=== PATIENT | female | born 1995 | race Caucasian/White ===

== ENCOUNTER 2019-10-24 21:20 | Outpatient (CLI) | payer MEDICAID ==
[2011-12-10 08:10] VITALS: BMI 21.8
[2019-10-24 22:31] LABS: BILIRUBIN NEGATIVE (NEGATIVE); GLUCOSE NEGATIVE (NEGATIVE); KETONE NEGATIVE (NEGATIVE); NITRITE NEGATIVE (NEGATIVE); UROBILINOGEN NORMAL (NORMAL)
[2019-10-24 22:32] LABS: BACTERIA MANY /hpf (NEGATIVE); EPITHELIAL CELLS 0-5 /hpf (0-5); RED CELLS - URINE 0-5 /hpf (0-5)
[2019-10-25 09:04] LABS: BASOPHILS 0.1 % (0-2); EOSINOPHILS 0.3 % (0-7); HEMATOCRIT 29.7 % (36.0-48.0); IMMATURE GRANULOCYTES 0.2 % (0-5); LYMPHOCYTES 20.7 % (15-50); MCH 29.5 pg (26.0-34.0); MCHC 33.7 g/dL (31.0-37.0); MCV 87.6 fL (80.0-100.0); MEAN PLATELET VOLUME 9.2 fL (7.4-10.4); MONOCYTES 4.7 % (2-11); PLATELET COUNT 337 10x3/uL (130-400); RBC 3.39 10x6/uL (4.00-5.40); RDW 13.8 % (11.5-14.5); WBC 8.9 10x3/uL (4.8-10.8)
[2019-10-25 09:14] LABS: CALC OSMOLALITY 268 mosm/kg (275-300); CALCIUM 8.3 mg/dL (8.5-10.1); CARBON DIOXIDE 27.3 mmol/L (21.0-32.0); CHLORIDE - SERUM 104 mmol/L (98-107); CREATININE - SERUM 0.5 mg/dL (0.6-1.3); GLUCOSE 80 mg/dL (74-106); POTASSIUM - SERUM 3.3 mmol/L (3.5-5.1); SODIUM 136 mmol/L (136-145); UREA NITROGEN 6 mg/dL (7-18); eGFR NON AFRICAN AMERICAN > 90 mL/min (90-120)
[2019-10-25 09:20] LABS: ALBUMIN 2.5 g/dL (3.4-5.0); ALKALINE PHOSPHATASE 57 U/L (30-120); ALT (SGPT) 13 U/L (10-68); BILIRUBIN - TOTAL 0.46 mg/dL (0.2-1.3); PROTEIN - SERUM 5.9 g/dL (6.4-8.2)
== END 2019-10-25 14:00 | disposition home or self-care (01) ==
LOC: D.LDO 21:20 → D.LD 21:20 → D.LDO 10-25 14:00
PROVIDERS: ATTEND Student in an Organized Health Care Education/Training Program
DX: O26.899 Other specified pregnancy related conditions, unspecified trimester (principal); Z3A.00 Weeks of gestation of pregnancy not specified; R10.9 Unspecified abdominal pain

== ENCOUNTER 2019-11-18 06:33 | Inpatient (IN) | payer OTHER ==
[~2019-11-18] VITALS: Ht 162.6 cm; Wt 63.5 kg
[2019-11-18] MEDS ORDERED: MIGRAINE MEDS (06:40)
[2019-11-18 07:01] LABS: KETONE 2+ mg/dL (NEGATIVE); NITRITE POSITIVE (NEGATIVE)
[2019-11-18 07:02] LABS: BILIRUBIN NEGATIVE (NEGATIVE); GLUCOSE NEGATIVE (NEGATIVE); UROBILINOGEN NORMAL (NORMAL)
[2019-11-18 07:03] LABS: WHITE CELLS - URINE >50 /hpf (NEGATIVE)
[2019-11-18 07:04] LABS: BACTERIA MANY /hpf (NEGATIVE); EPITHELIAL CELLS 0-5 /hpf (0-5)
[2019-11-18 07:09] LABS: HEMOGLOBIN 10.8 g/dL (12-16); MCH 29.5 pg (26.0-34.0); MCHC 32.7 g/dL (31.0-37.0); MCV 90.2 fL (80.0-100.0); MEAN PLATELET VOLUME 9.2 fL (7.4-10.4); PLATELET COUNT 329 10x3/uL (130-400); RBC 3.66 10x6/uL (4.00-5.40); WBC 20.4 10x3/uL (4.8-10.8)
[2019-11-18 07:20] LABS: HCG SERUM POSITIVE (NEGATIVE)
[2019-11-18 07:24] LABS: ALBUMIN 3.2 g/dL (3.4-5.0); ALKALINE PHOSPHATASE 81 U/L (30-120); ALT (SGPT) 21 U/L (10-68); CALCIUM 8.6 mg/dL (8.5-10.1); CARBON DIOXIDE 23.3 mmol/L (21.0-32.0); CREATININE - SERUM 0.8 mg/dL (0.6-1.3); GLUCOSE 116 mg/dL (74-106); LYMPHOCYTES 11 % (15-50); MONOCYTES 9 % (2-11); NEUTROPHILS 80 % (40-80); PLATELET ESTIMATE NORMAL; PROTEIN - SERUM 7.7 g/dL (6.4-8.2); UREA NITROGEN 9 mg/dL (7-18); eGFR NON AFRICAN AMERICAN > 90 mL/min (90-120)
[2019-11-18 07:30] LABS: CALC OSMOLALITY 267 mosm/kg (275-300); CHLORIDE - SERUM 99 mmol/L (98-107); SODIUM 134 mmol/L (136-145)
[2019-11-18 07:31] LABS: POTASSIUM - SERUM 2.9 mmol/L (3.5-5.1)
--- NOTE | 2019-11-18 08:10 | NUR ---
ROCHEPHIN WAS STARTED AFTER BLOOD CULTURES X 2 WERE DRAWN
[2019-11-18 09:05] VITALS: BP 126/72
--- NOTE | 2019-11-18 10:05 | NUR ---
PT REPORTS NAUSEA AFTER TAKIGN PO POTASSIUM. PT GIVEN ZOFRAN IVP PER ORDER.
[2019-11-18] MEDS ORDERED: BUTALB-APAP-CA1 EACH PO (16:27)
[2019-11-18] MEDS ORDERED: PREPLUS CA-FE1 EACH PO (16:27)
[2019-11-18 16:28] VITALS: BP 91/55; Ht 162.6 cm; Wt 63.5 kg
[2019-11-18 20:24] VITALS: BP 107/59
--- NOTE | 2019-11-18 20:28 | NUR ---
PT REC'D IN BED AT THIS TIME. STATES NO PAIN NOTED. IV SITE TP RIGHT WRIST PATENT AT THIS TIME. NS AT 100 ML/HR. NO ACUTE DISTRESS NOTED. VSS. CALL [facility] PT REACH. Shameka FITCH RN
--- NOTE | 2019-11-18 21:31 | NUR ---
pt states that she feel as if she has a fever. temp at this time. 99.6. pt zofran for vomiting. rahat ball rn
--- NOTE | 2019-11-18 22:42 | NUR ---
PT REC'D IN BED AT THIS TIME IN THE LEFT SIDE SLEEPING AT THIS TIME. NO VOMITING NOTED AT THIS TIME. Shameka FITCH RN
[2019-11-18 23:16] VITALS: BP 93/46
--- NOTE | 2019-11-18 23:18 | NUR ---
pt states nausea is better. pt febrile and tachycardic. all other vitals normal. will continue to monitor. rahat ball rn
--- NOTE | 2019-11-18 23:45 | NUR ---
pt called at this time. desires a shower and linens to be changed. pt up to shower and linens changed. rahat ball rn
--- NOTE | 2019-11-19 02:00 | NUR ---
PT ASLEEP AT THIS TIME. NO S/S OF DISTRESS NOTED. Shameka FITCH RN
--- NOTE | 2019-11-19 04:40 | NUR ---
pt complains of lower abdominal pain. pt rates pain at a 9. pt states that it travis feels like her belly is tightening but not like contractions. vss. pt up to bathroom at this time. pt states a little relief after voiding. pt placed on efm x2 at 0449. rahat ball rn
[2019-11-19 04:41] VITALS: BP 105/55
[2019-11-19 05:39] LABS: BASOPHILS 0.1 % (0-2); EOSINOPHILS 0.1 % (0-7); IMMATURE GRANULOCYTES 0.3 % (0-5); LYMPHOCYTES 7.4 % (15-50); MCH 29.8 pg (26.0-34.0); MCHC 33.2 g/dL (31.0-37.0); MCV 89.8 fL (80.0-100.0); MEAN PLATELET VOLUME 9.2 fL (7.4-10.4); MONOCYTES 7.6 % (2-11); NEUTROPHILS 84.5 % (40-80); RDW 14.5 % (11.5-14.5); WBC 18.5 10x3/uL (4.8-10.8)
[2019-11-19 06:02] LABS: HEMATOCRIT 25.6 % (36.0-48.0); HEMOGLOBIN 8.5 g/dL (12-16); PLATELET COUNT 237 10x3/uL (130-400); RBC 2.85 10x6/uL (4.00-5.40)
[2019-11-19 06:08] LABS: CALC OSMOLALITY 273 mosm/kg (275-300); CALCIUM 7.7 mg/dL (8.5-10.1); CARBON DIOXIDE 22.3 mmol/L (21.0-32.0); CHLORIDE - SERUM 107 mmol/L (98-107); CREATININE - SERUM 0.7 mg/dL (0.6-1.3); GLUCOSE 95 mg/dL (74-106); POTASSIUM - SERUM 3.4 mmol/L (3.5-5.1); SODIUM 138 mmol/L (136-145); UREA NITROGEN 6 mg/dL (7-18); eGFR NON AFRICAN AMERICAN > 90 mL/min (90-120)
--- NOTE | 2019-11-19 06:15 | NUR ---
PT REC'D ASLEEP AT THIS TIME. PT PROVIDED WITH HYDRATION AT THIS TIME. NO OTHER NEEDS VOICED. Shameka FITCH RN
[2019-11-19 07:19] VITALS: BP 123/56
--- NOTE | 2019-11-19 07:19 | NUR ---
RECEIVED PT AMBULATORY BACK TO BED FROM . STATES VOIDED FREELY. VSS. HRRR WITHOUT AUDIBLE MURMUR. BBS CLEAR. BS X 4. ABDOMEN SOFT/GRAVID. DENIES VAGINAL BLEEDING, LEAKING FLUID OR CTX'S. STATES "I WAS HAVING SOME CRAMPING EARLIER, BUT I THINK IT WAS FROM THE BACK PAIN I WAS HAVING.". NEG HOMANS' SIGN. PPP. NO EDEMA NOTED TO BLE. NS INFUSING AT 100 ML/HR TO RIGHT HAND/WRIST AREA. 22 GAUGE NOTED. PT C/O H/A. DENIES URINARY SYMPTOMS. DENIES RESPIRATORY SYMPTOMS. STATES "I DON'T KNOW WHY THEY THINK THAT". PT STATES BABY IS ACTIVE THIS AM. DENIES NEEDS OR FURTHER C/O. NEW BAG NS UP AT 100 ML/HR. ROCEPHIN 1 GRAM STARTED IVPB VIA ALARIS PUMP. TYLENOL 650 MG GIVEN PO ORDERED. PT INSTRUCTED ON ALL MEDS. VEBALIZES UNDERSTANDING.
--- NOTE | 2019-11-19 08:01 | NUR ---
PT HOLLOCK MAKER LIGHT. THIS NURSE TO ROOM. PT REQUESTS AND RECEIVES ICE WATER. PT TRASH EMPTIED. PT ALSO REQUESTS AND RECEIVES APPLE JUICE.
--- NOTE | 2019-11-19 08:43 | NUR ---
PT SUPERVISOR TRAIN OPERATIONS LIGHT. THIS NURSE TO ROOM. PT ASKS IF CAN AMBULATE IN HALLS. PT INSTRUCTED ON DROPLET PRECAUTIONS AND PT TO STAY IN ROOM AT THIS TIME. PT TO AMBULATE IN ROOM AT THIS TIME.
--- NOTE | 2019-11-19 09:30 | NUR ---
PT FLEXIBLE BABYSITTER LIGHT. REQUESTS SHEETS CHANGED. THIS NURSE TO ROOM. BED LINENS CHANGED. PT STATES "I SWEAT ALL OVER MY SHEETS". PT OFFERED LINENS AND TOILETRIES FOR SHOWER. PT DECLINES AT THIS TIME. PT BACK TO BED. TEMP CHECKED AND NOTED. PT STATES "I FEEL MUCH BETTER NOW".
--- NOTE | 2019-11-19 11:30 | NUR ---
DR LUX HERE. VISITS WITH PT. ORDER RECEIVED.
[2019-11-19 11:36] VITALS: BP 105/60
--- NOTE | 2019-11-19 11:40 | NUR ---
FLU SWAB OBTAINED FROM BOTH NARES. PT QUINN WELL.
--- NOTE | 2019-11-19 12:05 | NUR ---
PT CARDIOLOGY CLINICAL CONSULTANT LIGHT. THIS NURSE TO ROOM. PT IN BATHROOM. STATES "I HAD AN ACCIDENT". PT STATES "I THOUGHT I JUST HAD TO PEE AND GOT IN HERE AND I STARTED HAVING DIARRHEA." PT INTO SHOWER. LINENS AND TOILETRIES PROVIDED TO PT.
--- NOTE | 2019-11-19 14:05 | NUR ---
PT LYING SUPINE IN BED. WAKES UPON ENTERING ROOM. VSS. PT DID NOT EAT LUNCH. STATES "IT TASTED FUNNY". OFFERED PT SANDWICH TRAY OR SOMETHING ELSE TO EAT. PT STATES "HE WENT TO GO GET ME SOMETHING TO EAT". PT INSTRUCTED ON STAYING HYDRATED AND DRINKING LOTS OF WATER. 2 CUPS OF WATER ON BEDSIDE TABLE FROM THIS AM. PT STATES "I'VE BEEN SLEEPING".
[2019-11-19 14:20] VITALS: BP 106/59
--- NOTE | 2019-11-19 15:00 | NUR ---
PT REQUESTS AND RECEIVES FRESH ICE WATER. DENIES C/O.
--- NOTE | 2019-11-19 15:46 | NUR ---
PT STATES C/O N/V. APPROX 200 ML OF FORMED EMESIS NOTED IN BASIN. PT STATES "I TRIED TO EAT MY BURRITO". NEW EMESIS BASIN AND COLD, WET CLOTH PROVIDED TO PT. ZOFRAN 4 MG GIVEN SIVP OVER 2 MINUTES. PT INSTRUCTED ON MED. VERBALIZES UNDERSTANDING. PT STATES C/O N/V YESTERDAY. NO NAUSEA SINCE THIS NURSE ARRIVAL AT 0700. PT ENCOURAGED TO ONLY CONSUME LIGHT ITEMS SUCH POPSICLES, BROTH, SPRITE, SALTINE CRACKERS, ETC.
[2019-11-19 16:10] LABS: BASOPHILS 0.1 % (0-2); EOSINOPHILS 0.2 % (0-7); IMMATURE GRANULOCYTES 0.4 % (0-5); LYMPHOCYTES 9.4 % (15-50); MCH 29.2 pg (26.0-34.0); MCHC 32.1 g/dL (31.0-37.0); MCV 90.9 fL (80.0-100.0); MEAN PLATELET VOLUME 9.2 fL (7.4-10.4); NEUTROPHILS 81.9 % (40-80); RBC 3.08 10x6/uL (4.00-5.40); RDW 14.7 % (11.5-14.5); WBC 16.6 10x3/uL (4.8-10.8)
[2019-11-19 16:11] LABS: PLATELET COUNT 293 10x3/uL (130-400)
--- NOTE | 2019-11-19 17:00 | NUR ---
PT LYING TO LEFT SIDE IN BED. WAKES UPON ENTERING ROOM. STATES FEELING BETTER. DENIES NAUSEA. POPSICLE PROVIDED TO PT.
--- NOTE | 2019-11-19 17:34 | NUR ---
PT SITTING UP IN BED. CONSUMING ICE WATER WITH NO C/O NAUSEA. I/O DOCUMENTED.
--- NOTE | 2019-11-19 17:47 | NUR ---
DR LUX NOTIFIED OF CBC RESULTS, PT AFEBRILE SINCE 103 TEMP THIS AM, PT C/O N/V. ORDER RECEIVED TO COLLECT COVID 19 SWAB IF PT BECOMES FEBRILE.
--- NOTE | 2019-11-19 18:36 | NUR ---
PT WAKES UPON ENTERING ROOM. EFHM PLACED. PT REPOSITIONS TO LEFT SIDE. PROPPED WITH PILLOW. PT C/O RIGHT SIDE/BACK PAIN. STATES CONSTANT "WHEN I MOVE". STATES BETTER ONCE OUT OF BED AND AMBULATORY.
--- NOTE | 2019-11-19 19:00 | NUR ---
NO BEDSIDE REPORT REC'D DUE TO PT BEING ON DROPLET PRECAUTIONS.
--- NOTE | 2019-11-19 20:00 | NUR ---
THIS RN TO BEDSIDE FOR SHIFT ASSESSMENT IN [facility] PROCAUTION ATTIRE. PT AA&O X 4. CURRENTLY SITTING UP IN BED WISHING TO BE DISCONNECTED FROM EFM SO SHE MAY GO O THE BR. PT ASSISTED W/EFM/TOCO. PT AMBULATORY TO BR. PT REPORTS SPOUSE RECORDED PREVIOUS VOID OF 100ML. VOID AMOUNT REMAINS IN NUNS CAP. NUNS CAP EMPTIED PER THIS RN IN PREP FOR THIS VOID. PT ABLE TO VOID 500ML URINE. NUNS CAP EMPTIED AND PLACED BACK ON COMMODE. PT RETURNS TO BED FOR ASSESSMENT. SEE FLOWSHEET. PT CURRENTLY REPORTING CONTINUAL HEADACHE THAT SHE RATES 8/10. PT REPORTS TEMPORAL AND FRONTAL HEADACHE ALONG WITH PAIN THROUGH OUT HER HEAD WHEN SHE IS SITTING UP AND LOWERS HER HEAD. PT INFORMED MD WILL BE NOTIFIED FOR ORDERS. PT AGREEABLE.
--- NOTE | 2019-11-19 20:30 | NUR ---
THIS RN REMAINS IN PT'S ROOM AT THIS TIME ATTEMPTING TO LOCATE FHT'S VIA EFM TO OBTAIN A BASE LINE. PT REPORTS LOWER ABD PAIN WHEN PRESSURE APPLIED, BUT IS AGREEABLE TO PROCESS OF OBTAINING HEART TONES. ACTIVE MOVEMENT NOTED. PT REPORTS BEING ABLE TO FEEL MOVEMENT. PT GIVEN OPTIONS OF SOMETHING TO EAT OR DRINK. PT REQUEST STRAWBERRY JELLO AND POPCICLE. JELLO PROVIDED PER 2ND LD NURSE. THIS RN REMAINS AT BEDSIDE TO HOLD EXTERNAL MONITORS.
[2019-11-19 20:36] VITALS: BP 106/54
--- NOTE | 2019-11-19 21:00 | NUR ---
THIS RN REMAINS IN PT'S ROOM ATTEMPTING TO TAKE CARE OF ALL PT'S NEEDS WHILE AT BEDSIDE. PAIN AND NEEDS ASSESSED. PT REQUEST A GRAPE POPCICLE AND HAS TOLERATED 1 CUP OF JELLO SO FAR. SIG MARIA FERNANDA IS AWAKE NOW AND REQUEST A COLA TO DRINK AND QUESTIONS IF HE MAY GO OUTSIDE TO SMOKE? SIG OTHER INFORMED THAT THIS RN DOES NOT BELIEVE GUESTS WILL BE ALOUD AND A COLA CAN BE SERVED TO HIM. SIG MARIA FERNANDA AGREEABLE AT THIS TIME TO REMAIN INSIDE. COLA SERVED. PT REPORTS THAT SIG MARIA FERNANDA IS GOING TO HELP HER "CLEAN" UP AND REQUEST A CLEAN GOWN. CLEAN GOWN PROVIDED. PT DENIES ADDITIONAL NEEDS AT THIS TIME.
--- NOTE | 2019-11-19 21:05 | NUR ---
THIS RN JUST NOW ABLE TO REVIEW ORDERS. ORDER NOTED FOR ROCEPHIN IV SHOULD HAVE BEEN ADMIN AT 1999. CALLED FOR ORDER FOR MEDICATION FOR PT'S C/O HEADACHE. ORDERS REC'D FOR 1 TAB FIORICET X 1DOSE.
--- NOTE | 2019-11-19 21:25 | NUR ---
THIS RN TO PT'S BEDSIDE IN DROPLET PRECAUTION ATTIRE. ROCEPHIN 1GM UP TO INFUSE AT 100ML/HR FOR INFUSION TO BE COMPLETED IN 30MINS. 1 TAB FIORICET GIVEN PO. SEE EMAR. FRESH ICE WATER SERVED. PT DENIES FURTHER NEEDS AT THIS TIME.
--- NOTE | 2019-11-19 22:34 | NUR ---
THIS RN TO BEDSIDE IN DROPLET PRECAUTIONS FOR PAIN REASSESSMENT AND ASSESSMENT OF NEEDS. PT REPORTS HEADACHE PAIN IS BETTER, RATES 6/10. ICE PACK OFFERED. PT ACCEPTS. AXILLARY TEMP OBTAINED AT THIS TIME DUE TO FACT PT HAS JUST BEEN DRINKING. PT DENIES FURTHER NEEDS AT THIS TIME. PT INSTRUCTED TO NOT EAT OR DRINK ANYTHING X 30 -45 MINS SO AN ORAL TEMP MAY BE TAKEN. PT AGREEABLE. PT HAS VOIDED AGAIN. SEE I&O. ANA, SIDE RAIL UP X 2. CALL LIGHT AT PT'S SIDE.
--- NOTE | 2019-11-19 23:30 | NUR ---
THIS RN TO BEDSIDE FOR VITALS AND PAIN REASSESSMENT. SEE FLOWSHEET. PT IS AFEBRILE. PT REPORTS PAIN IS MUCH BETTER. RATES PAIN 2 OR LESS. WHILE AT BEDSIDE. PT REQUESTS IV SITE TO BE RESITED. ATTEMPT TO RESITE TO LEFT ARM X 4 ATTEMPTS PER THIS RN W/NO SUCCESS. Marcy VALDEZ RN CALLED TO ROOM TO ATTEMPT TO RESITE. 2 UNSUCESSFUL ATTEMPTS PER Marcy VALDEZ RN. PT AGREEABLE TO LEAVING IV SITE TO RT THUMB. PT NOW REQUESTING SOMETHING TO ACT EAR PLUGS TO DROWN OUT THE SNORING OF HER SPOUSE. COTTON BALLS PROVIDED. RN LEAVES PT'S ROOM AT 0025. LIGHTS TURNED DOWN FOR PT TO ATTEMPT TO REST. FRESH ICE WATER SERVED.
[2019-11-19 23:37] VITALS: BP 106/58
--- NOTE | 2019-11-20 00:15 | NUR ---
BED LINENS CHANGED PER PT REQUEST PT'S SHEETS ARE WET WITH SWEAT.
--- NOTE | 2019-11-20 02:30 | NUR ---
ROUNDS MADE. PT RESTING QUIETLY TO RT SIDE W/EYES CLOSED. RESP EVEN AND UNLABORED. PT LEFT UNDISTURBED AT THIS TIME TO ALLOW FOR REST.
--- NOTE | 2019-11-20 02:54 | NUR ---
IV PUMP SOUNDING. THIS RN TO BEDSIDE IN DROPLET PRECAUTION ATTIRE. NEW BAG OF NS UP TO INFUSE AT 100ML/HR. WHILE AT BEDSIDE, PT PAIN AND NEEDS ASSESSED. PT DENIES NEEDS. REPORTS PAIN 0/10. TEMP AND PULSE OBTAINED. PT IS AFEBRILE. PULSE RATE HAS LOWERED. SEE FLOWSHEET.
--- NOTE | 2019-11-20 05:00 | NUR ---
ROUNDS MADE. PT SLEEPING TO LEFT SIDE. RESP EVEN AND UNLABORED. PT WAKENED FOR VITAL SIGNS AND PAIN ASSESSMENT. PT CURRENTLY DENIES PAIN OF ANY KIND. DENIES NEEDS. VITAL SIGNS STABLE. SEE FLOWSHEET.
[2019-11-20 05:01] VITALS: BP 97/52
--- NOTE | 2019-11-20 08:53 | NUR ---
see also centricity for notes.
[2019-11-20 12:41] VITALS: BP 109/67
--- NOTE | 2019-11-20 16:30 | NUR ---
RINGS CALL LIGHT- REQUESTING ICE PACK FOR NECK. DENIES HEADACHE AT THIS TIME. REG DIET SERVED. STATES THAT SHE ATE SANDWICH AT LUNCHTIME.
--- NOTE | 2019-11-20 18:45 | NUR ---
report to pm shift.
--- NOTE | 2019-11-20 19:15 | NUR ---
THIS RN TO BEDSIDE ASSESS PT NEEDS AND TO INFORM HER THAT THIS RN WILL RETURN FOR SHIFT ASSESSMENT. PT REQUEST 2 CUPS OF ICE. ICE SERVED.DENIES FURTHER NEEDS AT THIS TIME.
[2019-11-20 19:53] VITALS: BP 119/74
--- NOTE | 2019-11-20 19:54 | NUR ---
THIS RN TO BEDSIDE FOR SHIFT ASSESSMENT. PT CURRENTLY AA&O X 4. PAIN ASSESSED. P REPORTS SHE BEGINNING TO HAVE A HEADACHE AGAIN. BUT STATES "IT'S NOT TOO BAD." SHIFT ASSESSMENT COMPLETED. SEE FLOWSHEET. UPON INSPECTION OF IV SITE. PT C/O TENDERNESS AT SITE AND PAIN IN FOREARM. SWELLING NOTED ABOVE SITE. IV INFILTRATED. IV FLUIDS STOPPED AT THIS TIME. RN CALLED OUT OF PER MD REQUEST. WILL RETURN TO RESITE IV. PT DENIES NEEDS AT THIS TIME.
--- NOTE | 2019-11-20 21:00 | NUR ---
THIS RN TO BED TO RESITE IV. WHILE ATTEMPTING TO FIND APPROPRIATE SITE. RN CALLED OUT OF ROOM AGAIN PER MD REQUEST.
--- NOTE | 2019-11-20 22:00 | NUR ---
PIV STARTED TO LEFT AC W/24GUAGE CATH X 1ST ATTEMPT. NS CONNECTED. PLACED ON PUMP TO INFUSE PER MD ORDERS AT 100ML/HR. SITE WNL. NO REDNESS OR SWELLING NOTED.
--- NOTE | 2019-11-20 22:31 | NUR ---
PT PLACED ON EXTERNAL MONITORS AT THIS TIME FOR Q SHIFT MONITORING. EXTERMELY ACTIVE MOVEMENT NOTED. BASELINE OF 150 W/MODERATE VARIABILITY, ACCELS OF 10X10 AND VARIABLES NOTED. SEE [facility] FOR TRACING.
--- NOTE | 2019-11-20 23:08 | NUR ---
1 TAB FIORICET GIVEN FOR PT'S C/O HEADACHE. VITAL SIGNS OBTAINED PRIOR TO ADMIN. SEE FLOWSHEET. PT'S ROOM STRAIGHTENED. PT REPORTS SHE PLANS TO GO TO BED NOW. DENIES NEEDS AT THIS TIME. LIGHTS TURNED DOWN. BED IN LOW POSITION. CALL LIGHT AT PT'S SIDE. SIG OTHER ON SOFA.
[2019-11-20 23:09] VITALS: BP 126/64
--- NOTE | 2019-11-20 23:45 | NUR ---
ROUNDS MADE FOR PAIN REASSESSMENT. PT CURRENTLY LYING TO RT SIDE W/EYES CLOSED. RESP EVEN AND UNLABORED. NO DISTRESS NOTED. PT UNAWARE OF THIS RN'S ENTRY TO THE ROOM. PAIN REASSESSED. USING FACE SCALE. RATED 0/10. PT LEFT UNDISTURBED.
--- NOTE | 2019-11-21 01:09 | NUR ---
ROUNDS MADE. PT OPENS HER EYES UPON THIS RN'S ENTRY TO THE ROOM. PAIN AND NEEDS ASSESSED. P DENIES PAIN OR NEEDS AT THIS TIME. NEXT NS UP TO INFUSE AT 100ML/HR (SCANNED EARLIER ON EMAR, BUT WAS NOT NEEDED AT THAT TIME.)
--- NOTE | 2019-11-21 03:05 | NUR ---
ROUNDS MADE. PT RESTING QUIETY TO LEFT SIDE W/EYES CLOSED. RESP EVEN AND UNLABORED. PT LEFT UNDISTURBED AT THIS TIME.
--- NOTE | 2019-11-21 05:00 | NUR ---
THIS RN TO BEDSIDE. PT IS RESTING QUIETLY W/EYES CLOSED. RESP EVEN AND UNLABORED. PT LEFT UNDISTURBED AT THIS TIME.
--- NOTE | 2019-11-21 06:00 | NUR ---
ROUNDS MADE. PT IN LOW KEITA'S W/EYES CLOSED. RESP EVEN AND UNLABORED. PT LEFT UNDISTURBED AT THIS TIME.
--- NOTE | 2019-11-21 07:00 | NUR ---
SEE [facility] FOR NOTES ON THIS PT FOR THIS SHIFT. (7A-7P ON 11/21/19)
--- NOTE | 2019-11-21 07:00 | NUR ---
LENNOX RN AND Shameka VILLAVICENCIO RN TO BEDSIDE FOR BEDSIDE SHIFT REPORT. PT SLEEPING. PT LEFT UNDISTURBED. NO BEDSIDE SHIFT REPORT GIVEN.
--- NOTE | 2019-11-21 12:10 | NUR ---
PT DISCHARGE TEACHING DONE AT 1200. OFF UNIT AT 1210, AMBULATORY WITH SIG OTHER. INSTRUCTIONS IN HAND. PT TO F/U SCHEDULED AT [facility] WITH DR TERRELL ON 12/01/19.
== END 2019-11-21 12:10 | disposition home or self-care (01) | DRG 833 ==
LOC: D.ER 06:33 → D.LD 08:20
PROVIDERS: Emergency Medicine; Family Medicine; ADMIT Student in an Organized Health Care Education/Training Program; ATTEND Student in an Organized Health Care Education/Training Program
DX: O23.02 Infections of kidney in pregnancy, second trimester (principal); Z3A.24 24 weeks gestation of pregnancy; O26.892 Other specified pregnancy related conditions, second trimester; R50.9 Fever, unspecified

== ENCOUNTER 2020-02-05 03:03 | Outpatient (CLI) | payer OTHER ==
[~2020-02-05] VITALS: Ht 162.6 cm; Wt 75.0 kg
[~2020-02-05 03:03] MED LIST: BUTALB-APAP-CA1 EACH PO; MIGRAINE MEDS; PREPLUS CA-FE1 EACH PO
[2020-02-05 06:44] LABS: BASOPHILS 0.1 % (0-2); EOSINOPHILS 1.7 % (0-7); HEMATOCRIT 31.6 % (36.0-48.0); HEMOGLOBIN 10.3 g/dL (12-16); IMMATURE GRANULOCYTES 0.5 % (0-5); LYMPHOCYTES 32.5 % (15-50); MCH 29.3 pg (26.0-34.0); MCHC 32.6 g/dL (31.0-37.0); MCV 89.8 fL (80.0-100.0); MEAN PLATELET VOLUME 10.4 fL (7.4-10.4); MONOCYTES 7.6 % (2-11); NEUTROPHILS 57.6 % (40-80); RBC 3.52 10x6/uL (4.00-5.40); RDW 14.1 % (11.5-14.5); WBC 8.6 10x3/uL (4.8-10.8)
[2020-02-05 07:00] LABS: PLATELET COUNT 362 10x3/uL (130-400)
[2020-02-05 07:05] LABS: BILIRUBIN NEGATIVE (NEGATIVE); GLUCOSE NEGATIVE (NEGATIVE); KETONE NEGATIVE (NEGATIVE); NITRITE NEGATIVE (NEGATIVE); SPECIFIC GRAVITY 1.015 (1.005-1.020); UROBILINOGEN NORMAL (NORMAL)
[2020-02-05 07:07] LABS: BACTERIA FEW /hpf (NEGATIVE); RED CELLS - URINE OCC /hpf (0-5); WHITE CELLS - URINE OCC /hpf (NEGATIVE)
[2020-02-05 07:38] LABS: UDS - AMPHET NEGATIVE QUAL (NEGATIVE); UDS - BARB NEGATIVE QUAL (NEGATIVE); UDS - BENZO NEGATIVE QUAL (NEGATIVE); UDS - COCAINE NEGATIVE QUAL (NEGATIVE); UDS - OPIATE NEGATIVE QUAL (NEGATIVE); UDS - PCP NEGATIVE QUAL (NEGATIVE); UDS - THC NEGATIVE QUAL (NEGATIVE)
--- NOTE | 2020-02-05 19:43 | NUR ---
PT IS STILL GRAVID AND REMAINS ON L&D FOR MONITORING. SEE CHARTING IN [facility].
[2020-02-05] MEDS ORDERED: MACROBID100 MG PO (20:43)
[2020-02-05 20:46] VITALS: BP 120/56; BMI 28.4
[2020-02-05] MEDS ORDERED: AMBIEN10 MG PO (21:46)
[2020-02-05] MEDS ORDERED: CALCIUM-MAGNESIUM PO (21:46)
[2020-02-06 05:52] VITALS: Ht 162.6 cm; Wt 75.0 kg
== END 2020-02-06 07:45 | disposition home or self-care (01) ==
LOC: D.LDO 03:03 → D.LD 03:03 → D.LDO 02-06 07:45
PROVIDERS: ATTEND Obstetrics & Gynecology
DX: O26.893 Other specified pregnancy related conditions, third trimester (principal); Z3A.35 35 weeks gestation of pregnancy; R10.30 Lower abdominal pain, unspecified; M54.5 Low back pain

== ENCOUNTER → 2020-02-09 11:05 | Outpatient (CLI) | payer OTHER ==
[2020-02-06 05:52] VITALS: BMI 28.4
[~2020-02-09 11:05] MED LIST changes: +AMBIEN10 MG PO; +CALCIUM-MAGNESIUM PO; +MACROBID100 MG PO
== END | disposition home or self-care (01) ==
LOC: D.LDO 11:05
PROVIDERS: ATTEND Obstetrics & Gynecology
DX: O99.413 Diseases of the circulatory system complicating pregnancy, third trimester (principal); Z3A.36 36 weeks gestation of pregnancy

== ENCOUNTER 2020-02-13 09:25 | Outpatient (CLI) | payer OTHER ==
[2020-02-06 05:52] VITALS: BMI 28.4
== END 2020-02-13 10:14 | disposition home or self-care (01) ==
LOC: D.LDO 09:25
PROVIDERS: ATTEND Obstetrics & Gynecology
DX: O99.413 Diseases of the circulatory system complicating pregnancy, third trimester (principal); Z3A.37 37 weeks gestation of pregnancy

== ENCOUNTER 2020-02-16 14:45 | Outpatient (CLI) | payer OTHER ==
[2020-02-06 05:52] VITALS: BMI 28.4
== END 2020-02-16 15:50 | disposition home or self-care (01) ==
LOC: D.LDO 14:45
PROVIDERS: ATTEND Obstetrics & Gynecology
DX: O36.8330 Maternal care for abnormalities of the fetal heart rate or rhythm, third trimester, not applicable or unspecified (principal); Z3A.37 37 weeks gestation of pregnancy

== ENCOUNTER 2020-02-21 23:39 | Outpatient (CLI) | payer OTHER ==
[2020-02-06 05:52] VITALS: BMI 28.4
[2020-02-22 00:27] LABS: BILIRUBIN NEGATIVE (NEGATIVE); GLUCOSE NEGATIVE (NEGATIVE); KETONE NEGATIVE (NEGATIVE); NITRITE NEGATIVE (NEGATIVE); UROBILINOGEN NORMAL (NORMAL)
== END 2020-02-22 00:41 | disposition home or self-care (01) ==
LOC: D.LDO 23:39 → D.LD 23:40 → D.LDO 02-22 00:41
PROVIDERS: ATTEND Student in an Organized Health Care Education/Training Program
DX: O26.899 Other specified pregnancy related conditions, unspecified trimester (principal); Z3A.00 Weeks of gestation of pregnancy not specified; N85.8 Other specified noninflammatory disorders of uterus

== ENCOUNTER 2020-02-26 17:26 | Inpatient (IN) | payer MEDICAID ==
[~2020-02-26] VITALS: Ht 162.6 cm; Wt 77.7 kg
[2020-02-26 18:26] VITALS: BP 114/62; Ht 162.6 cm; Wt 77.7 kg
[2020-02-26 18:39] LABS: HEMOGLOBIN 11.2 g/dL (12-16); MCH 29.8 pg (26.0-34.0); MCHC 32.9 g/dL (31.0-37.0); MCV 90.4 fL (80.0-100.0); MEAN PLATELET VOLUME 10.1 fL (7.4-10.4); RBC 3.76 10x6/uL (4.00-5.40); RDW 14.3 % (11.5-14.5); WBC 9.6 10x3/uL (4.8-10.8)
[2020-02-26 19:27] LABS: BILIRUBIN NEGATIVE (NEGATIVE); GLUCOSE NEGATIVE (NEGATIVE); KETONE NEGATIVE (NEGATIVE); NITRITE NEGATIVE (NEGATIVE); SPECIFIC GRAVITY 1.015 (1.005-1.020); UROBILINOGEN NORMAL (NORMAL)
[2020-02-26 19:39] LABS: UDS - AMPHET NEGATIVE QUAL (NEGATIVE); UDS - BARB POSITIVE QUAL (NEGATIVE); UDS - BENZO NEGATIVE QUAL (NEGATIVE); UDS - COCAINE NEGATIVE QUAL (NEGATIVE); UDS - OPIATE NEGATIVE QUAL (NEGATIVE); UDS - PCP NEGATIVE QUAL (NEGATIVE); UDS - THC NEGATIVE QUAL (NEGATIVE)
--- NOTE | 2020-02-27 23:25 | NUR ---
PT MOVED TO [facility] 1278 AT THIS TIME. NO DISTRESS NOTED. Shameka FITCH RN
--- NOTE | 2020-02-27 23:31 | NUR ---
PT MEDICATED FOR PAIN OF 6/10 WITH HYDROCODONE. WILL CONTINUE TO MONITOR. Shameka FITCH RN
[2020-02-27 23:32] VITALS: BP 114/72
--- NOTE | 2020-02-28 00:36 | NUR ---
pt medicated with toradol. will monitor. rahat ball rn
--- NOTE | 2020-02-28 02:25 | NUR ---
pt asleep at this time. no distress noted. rahat ball rn
--- NOTE | 2020-02-28 03:40 | NUR ---
REPORT TO Shameka LARSON RN
--- NOTE | 2020-02-28 04:20 | NUR ---
PT AWAKE, HOLDING INFANT, ASSISTED PT PUTTING BACK INTO OPEN CRIB CART, PT DENIES NEEDS OR PAIN AT THIS TIME, FOB ASLEEP ON COUCH
--- NOTE | 2020-02-28 06:07 | NUR ---
PT ALMOND SORTER LIGHT, PT C/O CRAMPING AND CHALINO PAIN, ADM NORCO AND TORADOL PO PER MD ORDERS, WITH FRESH H20, REQUESTED AND SERVED GUNNAR PT HOLDING INFANT AT THIS TIME, PT DENIES FURTHER NEEDS, FOB ASLEEP ON COUCH
[2020-02-28 07:14] LABS: RAPID PLASMA REAGIN Non Reactive (Non Reactive)
--- NOTE | 2020-02-28 08:15 | NUR ---
AM ASSESSMENT COMPLETED CHARTED ON FLOWSHEET, RATES PAIN AT 0/10. CHALINO PAD AND MESH BRIEFS PLACED IN BATHROOM, FUNDUS FIRM AT U/1 WITH SCANT BLEEDING AND NO CLOTS NOTED. SIDE RAILS UP X 2 WITH CALL LIGHT IN REACH.
--- NOTE | 2020-02-28 10:16 | NUR ---
CLEAN INFANT SHIRT PER REQUEST. PT RATES PAIN AT 1/10 AND UNDERSTANDS PAIN MED IS AVAILABLE WHEN NEEDED JUST TO CALL NURSE. DENIES NEEDS AT THIS TIME.
--- NOTE | 2020-02-28 12:30 | NUR ---
RATES PAIN AT 2/10, LARGE ICE WATER AND ICE CREAM REQUESTED. CALL LIGHT IN REACH
--- NOTE | 2020-02-28 14:08 | NUR ---
INFANT TO BREAST AT THIS TIME. RATES PAIN AT 2/10 AND DENIES NEEDS.
--- NOTE | 2020-02-28 17:00 | NUR ---
PT RATES PAIN/CRAMPING AT 8/10. MEDS GIVEN SCANNED TO EMAR. REGULAR DIET TRAY SERVED, IN CRIB AT BEDSIDE AND SPOUSE PRESENT. DENIES ANY OTHER NEEDS AT THIS TIME.
--- NOTE | 2020-02-28 17:40 | NUR ---
RATES PAIN AT 3/10 AT THIS TIME AND DENIES NEEDS. QUESTIONS ANSWERED ABOUT WHEN DISCHARGE WOULD OCCUR, STATES UNDERSTANDING THAT WHEN NURSERY DISCHARGES INFANT THEN WOULD GO OVER HER PAPERWORK. CALL LIGHT IN REACH.
--- NOTE | 2020-02-28 20:05 | NUR ---
ASSESSMENT COMPLETED, DISCHARGE INSTRUCTIONS GIVEN ALONG W/ SITZ BATH FOR HOME USE, PT ACKNOWLEDGED UNDERSTANDING OF INSTRUCTIONS ON USE, NO RX GIVEN, ENCOURAGED PT TO USE TYLENOL AND IBUPROFEN PER ORDERS, PT STATES IS JUST WAITING FOR BABY TO BE DISCHARGED THEN LEAVING W/ SIG OTHER TO HOME IN STABLE CONDITION
--- NOTE | 2020-02-28 20:36 | NUR ---
pt d/c'd to car w/ sig other via wc, in carrier.
== END 2020-02-28 20:38 | disposition home or self-care (01) | DRG 807 ==
LOC: D.LD 17:26
PROVIDERS: ADMIT Obstetrics & Gynecology; ATTEND Obstetrics & Gynecology
PROC: 10D07Z6 Extraction of Products of Conception, Vacuum, Via Natural or Artificial Opening (ICD-10-PCS; principal; 2020-02-27)
PROC: 0W8NXZZ Division of Female Perineum, External Approach (ICD-10-PCS; 2020-02-27)
PROC: 10907ZC Drainage of Amniotic Fluid, Therapeutic from Products of Conception, Via Natural or Artificial Opening (ICD-10-PCS; 2020-02-27)
PROC: 3E033VJ Introduction of Other Hormone into Peripheral Vein, Percutaneous Approach (ICD-10-PCS; 2020-02-27)
DX: O80 Encounter for full-term uncomplicated delivery (principal); Z37.0 Single live birth; Z3A.39 39 weeks gestation of pregnancy

== ENCOUNTER 2020-10-29 21:25 | Emergency (ER) | payer OTHER ==
[~2020-10-29] VITALS: Ht 162.6 cm; Wt 68.2 kg
[2020-10-29 21:35] VITALS: Ht 162.6 cm; Wt 68.2 kg
[2020-10-29 22:10] LABS: BACTERIA FEW HPF (NONE SEEN); BILIRUBIN NEGATIVE (NEGATIVE); KETONE MODERATE mg/dL (NEGATIVE); NITRITE NEGATIVE (NEGATIVE); SQUAMOUS EPITHELIAL 0-5 HPF (0-4); UROBILINOGEN NORMAL mg/dL (< 2); WHITE CELLS - URINE OCC HPF (0-4)
[2020-10-29 22:22] LABS: INFLUENZA TYPE A NEGATIVE (NEGATIVE); INFLUENZA TYPE B NEGATIVE (NEGATIVE)
[2020-10-29 22:34] LABS: BASOPHILS 0 % (0-2); EOSINOPHILS 0.1 % (0-7); HEMATOCRIT 41.2 % (36.0-48.0); HEMOGLOBIN 13.8 g/dL (12-16); IMMATURE GRANULOCYTES 0.2 % (0-5); LYMPHOCYTE ABS# 1.83 10x3/uL (1.18-3.74); LYMPHOCYTES 16.2 % (15-50); MCH 28.3 pg (26.0-34.0); MCHC 33.5 g/dL (31.0-37.0); MCV 84.4 fL (80.0-100.0); MEAN PLATELET VOLUME 9.9 fL (7.4-10.4); MONOCYTES 6.3 % (2-11); NEUTROPHIL ABS# 8.74 10x3/uL (1.56-6.13); NEUTROPHILS 77.2 % (40-80); PLATELET COUNT 339 10x3/uL (130-400); RBC 4.88 10x6/uL (4.00-5.40); RDW 14.7 % (11.5-14.5); WBC 11.3 10x3/uL (4.8-10.8)
[2020-10-29 22:46] LABS: ALBUMIN 4.9 g/dL (3.4-5.0); ALKALINE PHOSPHATASE 69 U/L (30-120); ALT (SGPT) 17 U/L (10-68); BILIRUBIN - TOTAL 1.14 mg/dL (0.2-1.3); CALC OSMOLALITY 273 mosm/kg (275-300); CALCIUM 9.2 mg/dL (8.5-10.1); CARBON DIOXIDE 22.6 mmol/L (21.0-32.0); CHLORIDE - SERUM 102 mmol/L (98-107); CREATININE - SERUM 0.9 mg/dL (0.6-1.3); GLUCOSE 86 mg/dL (74-106); PROTEIN - SERUM 8.8 g/dL (6.4-8.2); SODIUM 138 mmol/L (136-145); UREA NITROGEN 10 mg/dL (7-18); eGFR NON AFRICAN AMERICAN 81 mL/min (90-120)
[2020-10-29 22:54] LABS: POTASSIUM - SERUM 2.9 mmol/L (3.5-5.1)
[2020-10-30] MEDS ORDERED: MACROBID100 MG PO (00:22)
[2020-10-30] MEDS ORDERED: ZOFRAN ODT4 MG/UDTAB PO (00:22)
[2020-10-30 01:31] VITALS: BP 109/54
== END 2020-10-30 01:32 | disposition home or self-care (01) ==
LOC: D.ER 21:25
PROVIDERS: Emergency Medicine
DX: J06.9 Acute upper respiratory infection, unspecified (principal); E87.6 Hypokalemia; N39.0 Urinary tract infection, site not specified; J45.909 Unspecified asthma, uncomplicated; Z72.0 Tobacco use

== ENCOUNTER 2021-01-03 05:15 | Day surgery (SDC) | payer OTHER ==
[~2021-01-03] VITALS: Ht 160 cm; Wt 64.4 kg
[~2021-01-03 05:15] MED LIST changes: +BC PILL PO; +TOPAMAX100 MG PO; +ZOFRAN ODT4 MG/UDTAB PO
[2021-01-03 05:47] LABS: HEMOGLOBIN 13.3 g/dL (12-16); MCH 28.4 pg (26.0-34.0); MCHC 33.3 g/dL (31.0-37.0); MCV 85.3 fL (80.0-100.0); MEAN PLATELET VOLUME 10.4 fL (7.4-10.4); RBC 4.69 10x6/uL (4.00-5.40); RDW 14.4 % (11.5-14.5); WBC 6.4 10x3/uL (4.8-10.8)
[2021-01-03 06:05] LABS: HCG SERUM NEGATIVE (NEGATIVE)
[2021-01-03 06:10] VITALS: BP 123/81; Ht 160 cm; Wt 64.4 kg
--- NOTE | 2021-01-03 09:15 | NUR ---
0915 PT STATES SHE IS COLD, WARMED BLANKET GIVEN, AT BEDSIDE 0925 DC TEACHING COMPLETED, PT VERBALIZED UNDERSTANDING 0945 JOE ASSITED PT TO BATHROOM, VOIDED, PIV DC'D-CATHETER INTACT, HELPING PT TO GET DRESSED 1009 PT DC'D VIA WC ACCOMPANIED BY THIS NURSE TO POV WITH DRIVING. ALL BELONGINGS AND DC PACKET WITH PT/.
--- NOTE | 2021-01-07 07:52 | OP ---
PATIENT NAME: BESSIE LUIS MEDICAL RECORD: [id number] :96 LOCATION:[facility] ADMISSION DATE: SURGEON: BERNADETTE JASSO MD DATE OF OPERATION: 01/03/2021 PREOPERATIVE DIAGNOSIS: Left wrist de Quervain's tenosynovitis. POSTOPERATIVE DIAGNOSIS: Left wrist de Quervain's tenosynovitis. PROCEDURE PERFORMED: Left wrist de Quervain's release. INDICATIONS FOR THE PROCEDURE: Ms. Luis is a 25-year-old female with history of left wrist de Quervain's tenosynovitis. She has had pain with activity for some time now and we have been attempting to treat this conservatively. Symptoms have persisted and she has elected to proceed with surgery for de Quervain's release. The risks, benefits and alternatives of surgery were discussed with the patient. Consent was obtained. DESCRIPTION OF PROCEDURE: The patient was met in the holding area where her identity and confirmation of procedure was performed. The left upper extremity was marked. She was taken to the operating room where she was placed supine on the operating table. Anesthesia was administered. Tourniquet was applied to the left arm. Left arm was prepped and draped in a sterile fashion. The patient received preoperative antibiotics and timeout was performed before initiating the case. On initiation of the case, the arm was exsanguinated and the tourniquet was raised. Total tourniquet time was 14 minutes. Incision was made over the radial wrist, near the first dorsal compartment. We incised through the skin and subcutaneous tissues and the first dorsal compartment was visualized in the floor of the incision. The compartment was incised and then released longitudinally. There was significant synovitis around the tendons. The synovitis was debrided and there appeared to be a smaller adhesion between the tendons that was released. The tissue from around the edge of the radial styloid was released. This provided full release of the tendons. Wound was irrigated thoroughly with saline. A 0.25% Marcaine with epinephrine was injected in the soft tissues around the incision. The wound was then closed with deep Vicryl suture and the skin was closed with Prolene. A sterile dressing was placed. The patient was placed into a thumb spica splint, turned back over to anesthesia where she was awakened, extubated, and taken to recovery room in stable condition. POSTOPERATIVE PLAN: The patient is going to return home with her family. She needs to remain in the splint until followup. We will see her back in clinic in 2 weeks. COMPLICATIONS: None. ESTIMATED BLOOD LOSS: 5 mL. ANESTHESIA: General LMA. TRANSINT:[id number] Voice Confirmation ID: [id number] DOCUMENT ID: [id number] OPERATIVE REPORT [id number] BESSIE LUIS BRENT M MD at 0752 CC: [id number] DICTATION DATE: 01/03/21826 SENIOR ENVIRONMENTAL PRACTICE LEADER: 01/03/21 1021 [facility] 01/03/21 [facility] [address] [place] [address]
== END 2021-01-03 10:09 | disposition home or self-care (01) ==
LOC: D.OPS 05:15
PROVIDERS: Anesthesiology; ATTEND Orthopaedic Surgery
DX: M65.4 Radial styloid tenosynovitis [de Quervain] (principal); M25.532 Pain in left wrist

== ENCOUNTER → 2021-01-16 11:29 | Outpatient (CLI) | payer OTHER ==
[2021-01-03 06:10] VITALS: BMI 25.2
[2021-01-16 11:45] LABS: HEMATOCRIT 41.2 % (36.0-48.0); HEMOGLOBIN 13.6 g/dL (12-16); MCH 28.1 pg (26.0-34.0); MCHC 33.1 g/dL (31.0-37.0); MEAN PLATELET VOLUME 8.7 fL (7.4-10.4); RBC 4.85 10x6/uL (4.00-5.40); RDW 14.2 % (11.5-14.5); WBC 3.8 10x3/uL (4.8-10.8)
[2021-01-16 11:54] LABS: PLATELET COUNT 324 10x3/uL (130-400)
[2021-01-16 12:02] LABS: ALBUMIN 4.6 g/dL (3.4-5.0); ALKALINE PHOSPHATASE 60 U/L (30-120); ALT (SGPT) 16 U/L (10-68); BILIRUBIN - TOTAL 0.93 mg/dL (0.2-1.3); CALC OSMOLALITY 282 mosm/kg (275-300); CALCIUM 9.2 mg/dL (8.5-10.1); CARBON DIOXIDE 27.2 mmol/L (21.0-32.0); CHLORIDE - SERUM 106 mmol/L (98-107); CREATININE - SERUM 0.9 mg/dL (0.6-1.3); GLUCOSE 75 mg/dL (74-106); SODIUM 142 mmol/L (136-145); UREA NITROGEN 16 mg/dL (7-18); eGFR NON AFRICAN AMERICAN 81 mL/min (90-120)
[2021-01-16 14:30] LABS: EOSINOPHILS 1 % (0-7); LYMPHOCYTES 37 % (15-50); MONOCYTES 8 % (2-11); NEUTROPHILS 52 % (40-80); PLATELET ESTIMATE NORMAL
== END | disposition home or self-care (01) ==
LOC: D.LAB 11:29
PROVIDERS: ATTEND Psychiatry & Neurology Neurology
DX: G43.909 Migraine, unspecified, not intractable, without status migrainosus (principal)